=== PATIENT | female | born 1995 | race Hispanic/Latino ===

== ENCOUNTER 2021-11-12 21:03 | Emergency (ER) | payer BC, OTHER ==
[~2021-11-12] VITALS: Ht 154.9 cm; Wt 77.1 kg
[~2021-11-12 21:03] MED LIST: DICYCLOMINE PO; TYLENOL PO
[2021-11-12] MEDS ORDERED: PREDNISONE20 MG PO (21:44)
== END 2021-11-12 22:13 | disposition home or self-care (01) ==
LOC: FSED 21:31
DX: R21 Rash and other nonspecific skin eruption (principal)
CPT/HCPCS: 99282